=== PATIENT | male | born 2000 | race Caucasian/White ===

== ENCOUNTER 2023-04-04 16:02 | Emergency (ER) | payer BC ==
[~2023-04-04] VITALS: Ht 180.3 cm; Wt 98.8 kg
[2023-04-04 16:39] VITALS: BP 143/77; PULSE 73; RESP 17; TEMP 98; O2SAT 98
[2023-04-04] MEDS ORDERED: NAPR-56 PO (17:50)
[2023-04-04] MEDS ORDERED: AMOX-117 PO (17:50)
--- NOTE | 2023-04-04 18:45 | NUR ---
I have reviewed and agree with all interventions, assessments performed and documented by TOMAS ROLON
== END 2023-04-04 18:10 | disposition home or self-care (01) ==
LOC: ER 16:03
DX: S61.230A Puncture wound without foreign body of right index finger without damage to nail, initial encounter (principal); W54.0XXA Bitten by dog, initial encounter; Y93.89 Activity, other specified; Y92.89 Other specified places as the place of occurrence of the external cause; Y99.8 Other external cause status
CPT/HCPCS: 99283; J7030; A6449